=== PATIENT | female | born 1980 | race Caucasian/White ===

== ENCOUNTER 2018-10-26 09:23 | Day surgery (SDC) | payer OTHER ==
[~2018-10-26 09:23] MED LIST: PERCOCET 5/321 UDTAB PO; PERCOCET 5/3251 TAB PO; POLY119PG PO; ZOFRAN4 MG PO
== END 2018-10-26 14:35 | disposition home or self-care (01) ==
LOC: AMB-ENDOS 09:23
DX: K64.4 Residual hemorrhoidal skin tags (principal)

== ENCOUNTER 2020-11-28 12:59 | Outpatient (CLI) | payer OTHER | END 2020-11-28 13:14 | disposition home or self-care (01) | LOC: SONOGRAMA 12:59 | PROVIDERS: ATTEND Specialist | DX: N80.0 Endometriosis of uterus (principal) ==

== ENCOUNTER → 2020-11-28 13:16 | Outpatient (CLI) | payer OTHER | END | disposition home or self-care (01) | LOC: LAB 13:16 | PROVIDERS: ATTEND Specialist | DX: D50.8 Other iron deficiency anemias (principal); E83.51 Hypocalcemia; N39.0 Urinary tract infection, site not specified; N83.291 Other ovarian cyst, right side; N83.292 Other ovarian cyst, left side ==

== ENCOUNTER 2021-10-29 12:30 | Inpatient (IN) | payer OTHER ==
[~2021-10-29] VITALS: Ht 152.4 cm; Wt 63.5 kg
[2021-11-05] MEDS ORDERED: IBUPROFEN800 MG PO (08:03)
== END 2021-11-05 16:04 | disposition home or self-care (01) | DRG 743 ==
LOC: O/R 11-02 06:00 → OB/GYN 11-02 07:00
PROVIDERS: ADMIT Specialist; ATTEND Specialist
PROC: 0UT90ZZ Resection of Uterus, Open Approach (ICD-10-PCS; principal; 2021-11-02 07:00)
DX: D25.9 Leiomyoma of uterus, unspecified (principal); Z20.822 Contact with and (suspected) exposure to COVID-19; N80.0 Endometriosis of uterus; N72 Inflammatory disease of cervix uteri